=== PATIENT | male | born 1975 | race African-American/Black ===

== ENCOUNTER 2023-06-14 18:30 | Emergency (ER) | payer MEDICAID ==
[~2023-06-14] VITALS: Ht 180.3 cm; Wt 82.0 kg
[2023-06-14 18:33] VITALS: O2SAT 100
[2023-06-14 21:35] LABS: BASOPHILS % 0.6 % (0.0-2.0); EOSINOPHILS % 3.3 % (0.0-5.0); HEMOGLOBIN. 13.1 g/dL (14.0-18.0); LYMPHOCYTES % 38.3 % (20.0-50.0); MEAN CORPUSCULAR HEMOGLOBIN 28.4 pg (28.0-32.0); MEAN CORPUSCULAR VOLUME 84.5 fL (80.0-94.0); MEAN PLATELET VOLUME 8.1 fl (7.4-10.4); MONOCYTES % 6.4 % (2.0-8.0); NEUTROPHILS % 51.4 % (40.0-76.0); PLATELET 323 x1000/uL (130-400); RED BLOOD CELL COUNT 4.61 mill/uL (4.7-6.1); RED CELL DISTRIBUTION WIDTH 14.4 % (11.6-14.6)
[2023-06-14 21:36] LABS: CHLORIDE 111 mEq/L (98-107)
[2023-06-14 21:43] LABS: ETHANOL BLOOD < 10 mg/dL (-10)
[2023-06-15] MEDS ORDERED: DIPHENHYDRAMINE 25MG CAPSULE PO ONE (03:30)
[2023-06-15 03:47] LABS: CLARITY URINE CLEAR (CLEAR); COLOR URINE YELLOW (YELLOW); KETONES URINE NEGATIVE (NEGATIVE); LEUKOCYTE ESTERASE URINE NEGATIVE (NEGATIVE); NITRITE URINE NEGATIVE (NEGATIVE); OCCULT BLOOD URINE NEGATIVE (NEGATIVE); PROTEIN URINE NEGATIVE (NEGATIVE); SPECIFIC GRAVITY URINE 1.014 (1.005-1.030)
[2023-06-15 03:56] LABS: *AMPHETAMINES SCREEN URINE NEGATIVE (NEGATIVE); *BARBITURATES SCREEN URINE NEGATIVE (NEGATIVE); *BENZODIAZEPINES SCREEN URINE NEGATIVE (NEGATIVE); *COCAINE SCREEN URINE NEGATIVE (NEGATIVE); CANNABINOID URINE SCREEN NEGATIVE (NEGATIVE); METHADONE URINE SCREEN NEGATIVE (NEGATIVE); OPIATES URINE SCREEN NEGATIVE (NEGATIVE); PHENCYCLIDINE URINE SCREEN NEGATIVE (NEGATIVE)
[2023-06-15] MEDS ORDERED: HYDRALAZINE HCL 10MG TABLET PO ONE (04:45)
[2023-06-16] MEDS: QUETIAPINE FUMARATE 50MG TABLET PO SCH ×2 (10:07→21:41)
[2023-06-16] MEDS ORDERED: HYDROCHLOROTHIAZIDE 25MG TABLET PO ONE (21:15)
[2023-06-16] MEDS: LISINOPRIL 10MG TABLET PO SCH (21:41)
[2023-06-17] MEDS: LISINOPRIL 10MG TABLET PO SCH (09:00)
[2023-06-17 11:00] VITALS: BP 162/94; PULSE 95; RESP 14; TEMP 97.8
[2023-06-17] MEDS ORDERED: AMLODIPINE 5MG TABLET PO SCH (21:00)
== END 2023-06-17 17:40 | disposition home or self-care (01) ==
LOC: ER 18:30
DX: R45.851 Suicidal ideations (principal); F41.9 Anxiety disorder, unspecified; F32.9 Major depressive disorder, single episode, unspecified; I10 Essential (primary) hypertension; Z20.822 Contact with and (suspected) exposure to COVID-19
CPT/HCPCS: 80053; 80305; 81003; 80320; 85025; 36415; 99285; 87426; C9803; Z7610; G0480